=== PATIENT | female | born 1935 | race Caucasian/White ===

== ENCOUNTER 2023-11-17 16:29 | Emergency (ER) | payer MEDICARE, OTHER ==
[2023-11-17 16:37] VITALS: PULSE 84; RESP 16; TEMP 97.6; BMI 25.6
[2023-11-17] MEDS ORDERED: CEPHALEXIN MONOHYDRATE 500 MG CAPSULE (UD) PO ONE (18:20)
[2023-11-17] MEDS ORDERED: CEPHALEXIN MONOHYDRATE 500 MG CAPSULE (UD) ONE (18:48)
[2023-11-17] MEDS ORDERED: BACITRACIN ZINC 15 GM TUBE TOPICAL OINTMENT TP ONE (18:54)
[2023-11-17] MEDS ORDERED: BACITRACIN ZINC 15 GM TUBE TOPICAL OINTMENT ONE (18:58)
[2023-11-17 19:55] VITALS: BP 177/77
== END 2023-11-17 19:55 | disposition home or self-care (01) ==
LOC: JER 16:29
DX: D17.0 Benign lipomatous neoplasm of skin and subcutaneous tissue of head, face and neck (principal); I10 Essential (primary) hypertension
CPT/HCPCS: 99283-25